=== PATIENT | male | born 1950 | race Caucasian/White ===

== ENCOUNTER → 2017-02-15 | Outpatient (CLI) | payer MEDICARE, OTHER ==
--- NOTE | 2017-02-15 15:15 | KCIC ---
EXAM: Lumbar spine, 5 views. HISTORY: Pain. COMPARISON: None. FINDINGS: Frontal, lateral, bilateral oblique and coned sacral views of the lumbar spine are obtained. There is no listhesis. The vertebral bodies are normal in height. There is degenerative endplate remodeling with a tear osteophytosis at all visualized lower thoracic and lumbar levels. There is slight disc space narrowing at L3-L4 and L1-L2. There is facet arthropathy at multiple levels. There is a 9 mm nonobstructing right renal stone. There is surgical material within the ventral abdomen. IMPRESSION: 1. Multilevel degenerative change throughout the thoracic and lumbar spine, described above. 2. No acute finding. Electronically signed by: Adriana Reza MD (02/15/2017 3:12 PM) [id number]
== END | disposition home or self-care (01) ==
LOC: KCIC 14:27
PROVIDERS: ATTEND Physician Assistant Medical
DX: M47.896 Other spondylosis, lumbar region (principal); M47.894 Other spondylosis, thoracic region; M12.88 Other specific arthropathies, not elsewhere classified, other specified site; N20.0 Calculus of kidney
CPT/HCPCS: 72110

== ENCOUNTER → 2017-07-11 | Outpatient (CLI) | payer MEDICARE ==
--- NOTE | 2017-07-11 16:10 | KCIC ---
Three-view right knee dated 07/11/2017. No comparison available. CLINICAL INDICATION: Right knee pain. [place] pop. FINDINGS: 3 views right knee show normal bony alignment. No displaced fracture. Mild tricompartmental hypertrophic change. No apparent joint effusion or loose body. IMPRESSION: No acute radiographic abnormality. Electronically signed by: Jimenez Zee MD (07/11/2017 4:07 PM) [id number]
== END | disposition home or self-care (01) ==
LOC: KCIC 15:26
PROVIDERS: ATTEND Family Medicine
DX: M25.561 Pain in right knee (principal)
CPT/HCPCS: 73562

== ENCOUNTER → 2017-07-17 | Outpatient (CLI) | payer MEDICARE ==
--- NOTE | 2017-07-17 14:45 | KCIC ---
MR of the right knee Indication: Pain for several months. [place] a pop while stretching. Lateral pain. Technique: The standard multiplanar sequences are obtained. Findings: Medial meniscus:Intact. Lateral meniscus: Minimal blunting of the free margin of the body segment, seen on the single coronal and a single sagittal slice, compatible with a tiny tear. Anterior cruciate ligament: Mild irregularity of the proximal anterior cruciate ligament at its femoral attachment, best seen on the upper axial slices. This is probably just due to tendinosis. There is no convincing evidence of ACL tear. No laxity. No acute Pivot shift bone injuries. Posterior cruciate ligament: Intact Medial collateral ligament: Intact. Iliotibial band: Intact. Lateral collateral ligament: Intact Popliteus tendon and biceps femoris tendon are intact. Extensor mechanism: Intact. Fluid: Small joint effusion. Articular cartilage -patellofemoral joint: Severe chondromalacia at the median ridge of the upper patella with subchondral cysts. Mild chondromalacia of the femoral trochlea. -medial compartment:Intact -lateral compartment: Moderate chondromalacia of the lateral tibial plateau. Bones: No significant lesion or acute fracture. Soft tissue: Small Ochoa's cyst. Mild anterior subcutaneous edema. Impression: 1. Tiny tear at the free margin of the body of the lateral meniscus. 2. 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 Electronically signed by: Jimenez Lubin MD (07/17/2017 2:41 PM) [id number]
== END | disposition home or self-care (01) ==
LOC: KCIC MRI 12:52
PROVIDERS: ATTEND Family Medicine
DX: M17.11 Unilateral primary osteoarthritis, right knee (principal); M94.261 Chondromalacia, right knee
CPT/HCPCS: 73721

== ENCOUNTER → 2017-10-23 | Outpatient (CLI) | payer MEDICARE | END | disposition home or self-care (01) | LOC: KCIC 14:09 | DX: M19.072 Primary osteoarthritis, left ankle and foot (principal); M79.89 Other specified soft tissue disorders | CPT/HCPCS: 73630 ==